=== PATIENT | male | born 1975 | race Caucasian/White ===

== ENCOUNTER 2017-03-03 11:13 | Emergency (ER) | payer OTHER | END 2017-03-03 12:30 | disposition home or self-care (01) | LOC: CFTX 11:13 → CED 11:13 → CFTX 12:21 | DX: S61.412A Laceration without foreign body of left hand, initial encounter (principal); Z23 Encounter for immunization; I10 Essential (primary) hypertension; F17.200 Nicotine dependence, unspecified, uncomplicated; Y99.0 Civilian activity done for income or pay; Z88.0 Allergy status to penicillin; Z88.2 Allergy status to sulfonamides; Y92.69 Other specified industrial and construction area as the place of occurrence of the external cause; W27.8XXA Contact with other nonpowered hand tool, initial encounter; Y93.89 Activity, other specified | CPT/HCPCS: 12002; 90471; 90715; 99283 ==